=== PATIENT | female | born 1955 | race Two or more races ===

== ENCOUNTER → 2022-09-12 | Day surgery (SDC) | payer MEDICARE ==
[~2022-09-12] MED LIST: AMLODIPINE BESYL5 MG PO; ASPIRIN81 MG PO; FENOFIBRATE145 MG PO; FENTANYL CITRATE/PF 100MCG/2 ML INJ ONE; LACTATED RINGER'S 1,000 ML ONE; LIPITOR10 MG PO; LOSARTAN POTASS25 MG PO; MIDAZOLAM HCL 2 MG/2 ML VIAL ONE; MULTI-VITAMIN1 EACH PO; OR PHACO EYE KIT ONE; PREOP PHACO EYE KIT ONE
[2022-09-12 09:54] VITALS: BP 121/71
== END | disposition home or self-care (01) ==
LOC: OR 06:42
PROVIDERS: ATTEND Ophthalmology
DX: H25.12 Age-related nuclear cataract, left eye (principal); I10 Essential (primary) hypertension; E78.5 Hyperlipidemia, unspecified; Z79.82 Long term (current) use of aspirin; Z79.899 Other long term (current) drug therapy
CPT/HCPCS: 66984; J2250; J3010; J7121; V2787